=== PATIENT | male | born 1970 | race Caucasian/White ===

== ENCOUNTER 2020-10-17 15:41 | Outpatient (NON) | payer OTHER, SELFPAY ==
[2020-10-18 12:29] LABS: Influenza Control Positive
[2020-10-19 16:06] LABS: SARS-CoV-2 RNA PCR Negative
== END 2020-10-17 15:42 ==
PROVIDERS: PCP Family Medicine; Visit Provider Physician Assistant
DX: Z20.828 Contact with and (suspected) exposure to other viral communicable diseases (principal); R53.83 Other fatigue
CPT/HCPCS: 87635; 87804; C9803; U0003

== ENCOUNTER → 2021-11-22 10:15 | Outpatient (CLI) | payer OTHER, SELFPAY ==
[2021-11-22 13:59] LABS: Influenza A QL RT-PCR Negative (Negative); Influenza B QL RT-PCR Negative (Negative); SARS-CoV-2 RNA PCR Negative
== END ==
PROVIDERS: PCP Family Medicine; Visit Provider Physician Assistant
DX: R09.81 Nasal congestion (principal); R68.89 Other general symptoms and signs; Z20.822 Contact with and (suspected) exposure to COVID-19
CPT/HCPCS: 87502; C9803; U0003; U0005

== ENCOUNTER → 2022-01-29 00:26 | Outpatient (CLI) | payer OTHER, SELFPAY ==
[2022-01-29 12:56] LABS: Influenza A QL RT-PCR Negative (Negative); Influenza B QL RT-PCR Negative (Negative); SARS-CoV-2 RNA PCR Negative
== END ==
PROVIDERS: PCP Family Medicine; Visit Provider Physician Assistant
DX: R05.9 Cough, unspecified (principal); Z20.822 Contact with and (suspected) exposure to COVID-19
CPT/HCPCS: 87502; C9803; U0003; U0005

== ENCOUNTER 2022-09-30 15:22 | Outpatient (CLI) | payer OTHER, SELFPAY ==
[2022-09-30 16:42] LABS: Influenza A QL RT-PCR Negative (Negative); Influenza B QL RT-PCR Negative (Negative); SARS-CoV-2 RNA PCR Negative
== END 2022-09-30 15:23 | disposition home or self-care (01) ==
LOC: ANHLAB 15:26
PROVIDERS: PCP Family Medicine; Visit Provider Nurse Practitioner Family
DX: R05.9 Cough, unspecified (principal); Z20.822 Contact with and (suspected) exposure to COVID-19
CPT/HCPCS: 87502; U0003; U0005

== ENCOUNTER 2022-10-07 11:13 | Outpatient (CLI) | payer OTHER, SELFPAY ==
--- NOTE | ~2022-10-07 | XR_ITS ---
XR chest 2V 10/07/2022 11:40 Indication: Shortness of breath Procedure: 2 view chest Comparison: Comparison to multiple prior studies sequentially, with oldest reviewed study dated 01/22. Findings: There is chronic right basilar opacity. Heart size upper normal. Left lung clear. No signif icant effusion or pneumothorax. No acute osseous abnormality. Impression: 1: Chronic right basilar opacity. Consider further evaluation with CT for further characterization. 2: No acute cardiopulmonary disease. Reviewed, dictated and finalized at location A. BAR MACHINE OPERATOR Impression: 1: Chronic right basilar opacity. Consider further evaluation with CT for furth er characterization. 2: No acute cardiopulmonary disease.
== END 2022-10-07 11:14 | disposition home or self-care (01) ==
PROVIDERS: PCP Family Medicine; Visit Provider Physician Assistant
DX: R05.9 Cough, unspecified (principal); R06.02 Shortness of breath; R91.8 Other nonspecific abnormal finding of lung field
CPT/HCPCS: 71046

== ENCOUNTER 2022-10-29 09:50 | Outpatient (RCR) | payer BC, SELFPAY ==
[2022-10-29 09:53] VITALS: BMI 39.9
[2022-10-29 12:38] VITALS: BMI 39.9
== END 2023-01-14 08:55 | disposition home or self-care (01) ==
LOC: ANHDMC 09:50
PROVIDERS: PCP Physician Assistant; Visit Provider Physician Assistant
DX: E11.9 Type 2 diabetes mellitus without complications (principal); Z71.3 Dietary counseling and surveillance; Z71.89 Other specified counseling
CPT/HCPCS: 97802; G0108

== ENCOUNTER 2022-10-29 14:18 | Outpatient (CLI) | payer BC, SELFPAY ==
--- NOTE | ~2022-10-29 | CT_ITS ---
EXAMINATION: CT diagnostic chest wo con DATE: 10/29/2022 14:34 INDICATION: abnormal CXR; chronic right basilar opacity. TECHNIQUE: Computed tomography (CT) of the chest was performed without intravenous contrast. Addition al 3D reconstructions utilizing coronal maximum intensity projection (MIP) were performed. Automated exposure control and iterative reconstruction technique were employed. The dose-length product was 65 8.98 mGy-cm. COMPARISON: 05/25/2008 FINDINGS: Chronic bandlike region of pleural-based atelectasis/scarring with associated architectural distortio n at the posterolateral right middle lobe which is increased somewhat in size since earlier study in 2007. Remainder of the lungs are clear. No suspicious pulmonary nodules, pneumonia, pulmonary edema, pleural effusion or pneumothorax. Heart size is normal. No pericardial effusion. Thoracic aorta is no rmal in caliber. No pathologically enlarged thoracic lymphadenopathy. Coarse calcifications at the lo wer pole of the left thyroid. Diffuse hepatic steatosis. Possible gallstone versus polyp at the neck of the partially visualized gallbladder. Mild thoracic spondylosis. IMPRESSION: 1. Bandlike region of chronic peripheral right middle lobe atelectasis/scarring which accounts for th e opacity right costophrenic angle on the prior radiograph. 2. Diffuse hepatic steatosis. 3. Small density at the neck of the partially visualized gallbladder which could represent a gallston e or polyp. Could consider further evaluation with right upper quadrant ultrasound as clinically bharat cated. Reviewed, dictated and finalized at location L. ION CASHIER IMPRESSION: 1. Bandlike region of chronic peripheral right middle lobe atelectasis/scarring which accounts for the opacity right costophrenic angle on the prior radiograp h. 2. Diffuse hepatic steatosis. 3. Small density at the neck of the partially visualized gallbladder which coul d represent a gallstone or polyp. Could consider further evaluation with right upper quadrant ultrasound as clinically indicated.
== END 2022-10-29 14:19 ==
LOC: MICIMG 14:19
PROVIDERS: PCP Family Medicine; Visit Provider Physician Assistant
DX: R91.8 Other nonspecific abnormal finding of lung field (principal); K76.0 Fatty (change of) liver, not elsewhere classified; K82.9 Disease of gallbladder, unspecified
CPT/HCPCS: 71250

== ENCOUNTER 2023-07-21 17:05 | Outpatient (CLI) | payer BC, SELFPAY ==
[2023-07-21 18:52] LABS: Strep Group A RT-PCR NOT DETECTED (Negative)
== END 2023-07-21 17:06 | disposition home or self-care (01) ==
LOC: ANHLAB 17:06
PROVIDERS: PCP Family Medicine; Visit Provider Physician Assistant
DX: R09.81 Nasal congestion (principal); J02.9 Acute pharyngitis, unspecified; R53.83 Other fatigue
CPT/HCPCS: 87651